=== PATIENT | female | born 1990 | race Caucasian/White ===

== ENCOUNTER 2017-10-03 03:44 | Day surgery (SDC) | payer MEDICAID ==
--- NOTE | ~2017-10-03 | OP ---
PATIENT NAME: AMI MARTIN MEDICAL RECORD: [id number] LOCATION:[facility] ADMISSION DATE: SURGEON: GODWIN HUTTON MD DATE OF OPERATION: 10/03/2017 PREOPERATIVE DIAGNOSIS: Deep laceration to the right foot including plantar fascial laceration. POSTOPERATIVE DIAGNOSIS: Deep laceration to the right foot including plantar fascial laceration. PROCEDURES: Excisional debridement with irrigation of the large laceration along with closure of the plantar fascia. SURGEON: Godwin Hutton MD ANESTHESIA: General. INTRAOPERATIVE COMPLICATIONS: None. SUMMARY OF PATHOLOGIC FINDINGS: As described above, the patient did have a very deep laceration; however, after copious irrigation and repair of the plantar fascia, this went back together nicely. OPERATIVE SUMMARY IN DETAIL: After obtaining the appropriate preoperative orthopedic surgery consent as well as anesthetic consultation, evaluation, and clearance, the patient was brought to the operating room and placed on the operating table in supine position. After general laryngeal mask airway was administered, tourniquet was placed about the proximal aspect of the right lower extremity. Right lower extremity was then prepped and draped in routine sterile fashion. Leg was elevated and exsanguinated and tourniquet was inflated to 350 mmHg. Careful irrigation was followed to take out any debris. Very little necrotic tissue was seen, it was excised that did not appear to be viable. One portion was a very small sliver of skin around the edge as this was at a very acute angle. The plantar fascial plane was reapproximated using 0 FiberWire. This was followed by further irrigation and then closure of the wound with 0 Prolene in a combination of mattress [id number] and simple sutures. Having completed this, the tourniquet was deflated and there was no bleeding. Sterile dressings were applied. The patient was awakened and taken to recovery in stable condition. All final needle and sponge counts were correct. TRANSINT:[id number] Voice Confirmation ID: [id number] DOCUMENT ID: [id number] GODWIN HUTTON MD at 1341 CC: [id number] DICTATION DATE: 10/13/17 2317 MEDICAL CLAIMS MANAGER: 10/14/17 0951 [facility] 10/03/17 [place] [address]
[2017-10-03 04:58] LABS: BASOPHILS 0.3 % (0-2); EOSINOPHILS 0.8 % (0-7); HEMATOCRIT 37.5 % (36.0-48.0); HEMOGLOBIN 12.4 g/dL (12-16); IMMATURE GRANULOCYTES 0.4 % (0-5); LYMPHOCYTES 29.3 % (15-50); MCH 31.2 pg (26.0-34.0); MCHC 33.1 g/dL (31.0-37.0); MCV 94.5 fL (80.0-100.0); MEAN PLATELET VOLUME 9.6 fL (7.4-10.4); MONOCYTES 9.9 % (2-11); NEUTROPHILS 59.3 % (40-80); PLATELET COUNT 249 10x3/uL (130-400); RBC 3.97 10x6/uL (4.00-5.40); RDW 12.4 % (11.5-14.5); WBC 7.2 10x3/uL (4.8-10.8)
[2017-10-03 05:14] LABS: HCG SERUM NEGATIVE (NEGATIVE)
[2017-10-03 05:17] LABS: ALBUMIN 3.7 g/dL (3.4-5.0); ALKALINE PHOSPHATASE 41 U/L (46-116); ALT (SGPT) 24 U/L (10-68); BILIRUBIN - TOTAL 0.29 mg/dL (0.2-1.3); CALC OSMOLALITY 279 mosm/kg (275-300); CALCIUM 8.7 mg/dL (8.5-10.1); CARBON DIOXIDE 22.1 mmol/L (21.0-32.0); CHLORIDE - SERUM 105 mmol/L (98-107); CREATININE - SERUM 0.8 mg/dL (0.6-1.3); GLUCOSE 94 mg/dL (74-106); POTASSIUM - SERUM 3.6 mmol/L (3.5-5.1); PROTEIN - SERUM 7.5 g/dL (6.4-8.2); SODIUM 142 mmol/L (136-145); UREA NITROGEN 5 mg/dL (7-18); eGFR NON AFRICAN AMERICAN > 90 mL/min (90-120)
[2017-10-03] MEDS ORDERED: HYDROCODONE-APA1 TAB PO (08:16)
[2017-10-03] MEDS ORDERED: BACTRIM DS TABL1 TAB PO (08:17)
== END 2017-10-03 10:29 | disposition home or self-care (01) ==
LOC: D.OPS 03:44 → D.ER 03:44 → EDSTATUS 08:45 → D.OPS 10:29
PROVIDERS: Family Medicine
DX: S91.321A Laceration with foreign body, right foot, initial encounter (principal); Z01.812 Encounter for preprocedural laboratory examination; W25.XXXA Contact with sharp glass, initial encounter